=== PATIENT | female | born 1990 | race American Indian/Alaskan Native ===

== ENCOUNTER 2017-04-02 02:01 | Emergency (ER) | payer OTHER ==
[2017-04-02 02:55] LABS: Basophils % (Auto) 0.5 % (0.0-1.8); Eosinophils % (Auto) 2.4 % (0.0-4.3); Hemoglobin 12.9 gm/dl (10.1-14.3); Mean Corpuscular HGB Conc 34 % (30-34); Mean Corpuscular Hemoglobin 35 pg (28-32); Mean Corpuscular Volume 104 fl (79-97); Platelet Count 271 K/mm3 (140-440); Red Blood Count 3.65 M/mm3 (3.65-5.03); Red Cell Distribution Width 13.7 % (13.2-15.2); White Blood Count 6.1 K/mm3 (4.5-11.0)
[2017-04-02 03:06] LABS: Alanine Aminotransferase 10 units/L (7-56); Albumin 4.3 g/dL (3.9-5); Albumin/Globulin Ratio 1.7 %; Alkaline Phosphatase 65 units/L (35-129); Anion Gap 15 mmol/L; BUN/Creatinine Ratio 10; Blood Urea Nitrogen 6 mg/dL (7-17); Carbon Dioxide 25 mmol/L (22-30); Glucose 113 mg/dL (65-100); Lipase 21 units/L (13-60); Potassium 4.1 mmol/L (3.6-5.0); Sodium 137 mmol/L (137-145); Total Protein 6.9 g/dL (6.3-8.2)
[2017-04-02 06:45] LABS: Bacteria,Urine 4+ /HPF (Negative); Bilirubin,Urine NEG (Negative); Blood,Urine SM (Negative); Ketones,Urine NEG (Negative); Leukocyte Esterase,Urine NEG (Negative); Mucus,Urine 1+ /HPF; Nitrite,Urine NEG (Negative); Protein,Urine <15 mg/dL mg/dL (Negative)
[2017-04-02] MEDS ORDERED: DILAUDID IV ONE (13:57)
[2017-04-02] MEDS ORDERED: cefTRIAXone 1 GM in NACL 0.9% 20 ML IV ONE (13:57)
[2017-04-02] MEDS ORDERED: NACL 0.9% 1000 ML 1,000 ML IV ONE (13:57)
[2017-04-02] MEDS ORDERED: ZOFRAN IV ONE (13:57)
--- NOTE | 2017-04-02 14:21 | Emergency Department Report ---
ED Abdominal Pain HPI - General Chief Complaint: Abdominal Pain Stated Complaint: BAD STOMACH PAIN, OVERIAN CYST Time Seen by Provider: 04/02/17 13:31 Source: patient Mode of arrival: Ambulatory Limitations: No Limitations - History of Present Illness Initial Comments: 26-year-old female with a past medical history of ovarian cyst, previous appendectomy, kidney stones with renal stent placement and removal 2 weeks ago presents to the hospital with right lower quadrant pain and vomiting since yesterday. Pain is increasing last 24 hours. Patient states she is homeless. She denies fever, hematuria, or dysuria, or vaginal discharge. Patient is concerned that she has had 40+ CT scans already. 2 weeks ago patient was seen at a hospital in [facility]. She was admitted to the hospital for kidney stones and received stent placement with removal. She was also informed at that time she had a right ovarian cyst and needed operation but patient left the hospital prior to treatment at the right ovarian cyst Patient states she is a virgin and does not engage in vaginal intercourse. Severity scale (0 -10): 8 - Related Data Previous Rx's Medication Instructions Recorded Last Taken Type HYDROcodone/APAP 5-325 [[place] 1 each PO Q6HR PRN #20 tablet 04/02/17 Unknown Rx 5/325] Nitrofurantoin Monohyd/M-Cryst 100 mg PO BID #10 capsule 04/02/17 Unknown Rx [Macrobid 100 mg Capsule] Ondansetron [Zofran Odt] 4 mg PO Q8HR PRN #20 tab.rapdis 04/02/17 Unknown Rx Allergies Allergy/AdvReac Type Severity Reaction Status Date / Time ketorolac [From Toradol] Allergy Itching Verified 04/02/17 02:15 ED Review of Systems ROS: Stated complaint: BAD STOMACH PAIN, OVERIAN CYST Other details as noted in HPI Comment: All other systems reviewed and negative Other: Constitutional: No fevers chills Eyes: No eye pain visual changes ENT: No ear pain or throat pain Neck: Denies pain Respiratory: Denies cough wheezing shortness of breath Cardiovascular: Denies chest pain, palpitations, syncope GI: As per HPI : Denies dysuria, urinary frequency, or urgency Musculoskeletal: Denies back pain, joint swelling Skin: Denies rash, lesions, erythema Neurologic: Denies headache, numbness, weakness Psychiatric: Denies suicidal ideation, hallucinations ED Past Medical Hx - Past Medical History Previous Medical History?: Yes Hx Kidney Stones: Yes Additional medical history: renal stent placed 2016 - Surgical History Past Surgical History?: Yes Hx Appendectomy: Yes Additional Surgical History: "my bowel burst when I was 5 yrs old and required surgery" - Social History Smoking Status: Never Smoker Substance Use Type: None - Medications Home Medications: Home Medications Medication Instructions Recorded Confirmed Last Taken Type HYDROcodone/APAP 5-325 [[place] 1 each PO Q6HR PRN #20 tablet 04/02/17 Unknown Rx 5/325] Nitrofurantoin Monohyd/M-Cryst 100 mg PO BID #10 capsule 04/02/17 Unknown Rx [Macrobid 100 mg Capsule] Ondansetron [Zofran Odt] 4 mg PO Q8HR PRN #20 tab.rapdis 04/02/17 Unknown Rx ED Physical Exam - General Limitations: No Limitations - Other Other exam information: General: No limitations, patient is alert in no acute distress Head exam: Atraumatic, normocephalic Eyes exam: Normal appearance, pupils equal reactive to light, extraocular movements intact ENT: Moist mucous membrane, normal oropharynx Neck exam: Normal inspection, full range of motion, no meningismus nontender Respiratory exam: Clear to auscultation bilateral, no wheezes, rales, crackles Cardiovascular: Normal rate and rhythm, normal heart sounds Abdomen: Soft, nondistended, right lower quadrant tenderness, with normal bowel sounds, no rebound, or guarding Extremity: Full range of motion normal inspection no deformity Back: Normal Inspection, full range of motion, no tenderness Neurologic: Alert, oriented x3, cranial nerves intact, no motor or sensory deficit Psychiatric: normal affect, normal mood Skin: Warm, dry, intact ED Course Vital Signs 04/02/17 04/02/17 04/02/17 02:07 06:12 11:02 Temperature 98.2 F 98.6 F Pulse Rate 99 H 93 H Respiratory 18 18 Rate Blood Pressure 121/64 104/65 O2 Sat by Pulse 98 97 100 Oximetry 04/02/17 04/02/17 04/02/17 11:15 11:30 12:00 Temperature Pulse Rate Respiratory Rate Blood Pressure 106/37 104/63 106/37 O2 Sat by Pulse 96 93 100 Oximetry 04/02/17 04/02/17 04/02/17 12:15 12:30 12:45 Temperature Pulse Rate Respiratory Rate Blood Pressure 106/58 100/61 102/59 O2 Sat by Pulse 100 100 100 Oximetry 04/02/17 04/02/17 04/02/17 13:00 13:15 13:30 Temperature Pulse Rate Respiratory Rate Blood Pressure 102/63 105/63 96/56 O2 Sat by Pulse 100 Oximetry 04/02/17 04/02/17 04/02/17 13:45 14:00 19:34 Temperature Pulse Rate Respiratory Rate Blood Pressure 103/54 108/80 108/80 O2 Sat by Pulse 100 96 Oximetry - Reevaluation(s) Reevaluation #1: 04/02/17 20:30 Patient received Dilaudid and 1 L normal saline with no further complaints of pain during ED stay - Consultations Consultation #1: 04/02/17 20:[address] 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 Reviewed CT and ultrasound report. Recommend outpatient follow-up in the office of further treatment. ED Medical Decision Making - Lab Data Result diagrams: 04/02/17 02:27 04/02/17 02:27 Lab Results 04/02/17 04/02/17 04/02/17 Range/Units 02:27 02:27 06:16 WBC 6.1 (4.5-11.0) K/mm3 RBC 3.65 (3.65-5.03) M/mm3 Hgb 12.9 (10.1-14.3) gm/dl Hct 38.0 (30.3-42.9) % MCV 104 H (79-97) fl MCH 35 H (28-32) pg MCHC 34 (30-34) % RDW 13.7 (13.2-15.2) % Plt Count 271 (140-440) K/mm3 Lymph % (Auto) 39.8 H (13.4-35.0) % [place] % (Auto) 7.5 H (0.0-7.3) % Eos % (Auto) 2.4 (0.0-4.3) % Baso % (Auto) 0.5 (0.0-1.8) % Lymph # 2.4 (1.2-5.4) K/mm3 [place] # 0.5 (0.0-0.8) K/mm3 Eos # 0.1 (0.0-0.4) K/mm3 Baso # 0.0 (0.0-0.1) K/mm3 Seg Neutrophils % 49.8 (40.0-70.0) % Seg Neutrophils # 3.0 (1.8-7.7) K/mm3 Sodium 137 (137-145) mmol/L Potassium 4.1 (3.6-5.0) mmol/L Chloride 101.0 (98-107) mmol/L Carbon Dioxide 25 (22-30) mmol/L Anion Gap 15 mmol/L BUN 6 L (7-17) mg/dL Creatinine 0.6 L (0.7-1.2) mg/dL Estimated GFR > 60 ml/min BUN/Creatinine Ratio 10 % Glucose 113 H (65-100) mg/dL Calcium 9.0 (8.4-10.2) mg/dL Total Bilirubin 0.30 (0.1-1.2) mg/dL AST 15 (5-40) units/L ALT 10 (7-56) units/L Alkaline Phosphatase 65 (35-129) units/L Total Protein 6.9 (6.3-8.2) g/dL Albumin 4.3 (3.9-5) g/dL Albumin/Globulin Ratio 1.7 % Lipase 21 (13-60) units/L Urine Color Yellow (Yellow) Urine Turbidity Clear (Clear) Urine pH 6.0 (5.0-7.0) Ur Specific [place] 1.019 (1.003-1.030) Urine Protein <15 mg/dl (Negative) mg/dL Urine Glucose (UA) Neg (Negative) mg/dL Urine Ketones Neg (Negative) mg/dL Urine Blood Sm (Negative) Urine Nitrite Neg (Negative) Urine Bilirubin Neg (Negative) Urine Urobilinogen 2.0 (<2.0) mg/dL Ur Leukocyte Esterase Neg (Negative) Urine WBC (Auto) 10.0 H (0.0-6.0) /HPF Urine RBC (Auto) 19.0 (0.0-6.0) /HPF U Epithel Cells (Auto) 12.0 (0-13.0) /HPF Urine Bacteria (Auto) 4+ (Negative) /HPF Hyaline Casts 1 /LPF Urine Mucus 1+ /HPF Urine HCG, Qual (Negative) 04/02/17 Range/Units 06:16 WBC (4.5-11.0) K/mm3 RBC (3.65-5.03) M/mm3 Hgb (10.1-14.3) gm/dl Hct (30.3-42.9) % MCV (79-97) fl MCH (28-32) pg MCHC (30-34) % RDW (13.2-15.2) % Plt Count (140-440) K/mm3 Lymph % (Auto) (13.4-35.0) % [place] % (Auto) (0.0-7.3) % Eos % (Auto) (0.0-4.3) % Baso % (Auto) (0.0-1.8) % Lymph # (1.2-5.4) K/mm3 [place] # (0.0-0.8) K/mm3 Eos # (0.0-0.4) K/mm3 Baso # (0.0-0.1) K/mm3 Seg Neutrophils % (40.0-70.0) % Seg Neutrophils # (1.8-7.7) K/mm3 Sodium (137-145) mmol/L Potassium (3.6-5.0) mmol/L Chloride (98-107) mmol/L Carbon Dioxide (22-30) mmol/L Anion Gap mmol/L BUN (7-17) mg/dL Creatinine (0.7-1.2) mg/dL Estimated GFR ml/min BUN/Creatinine Ratio % Glucose (65-100) mg/dL Calcium (8.4-10.2) mg/dL Total Bilirubin (0.1-1.2) mg/dL AST (5-40) units/L ALT (7-56) units/L Alkaline Phosphatase (35-129) units/L Total Protein (6.3-8.2) g/dL Albumin (3.9-5) g/dL Albumin/Globulin Ratio % Lipase (13-60) units/L Urine Color (Yellow) Urine Turbidity (Clear) Urine pH (5.0-7.0) Ur Specific [place] (1.003-1.030) Urine Protein (Negative) mg/dL Urine Glucose (UA) (Negative) mg/dL Urine Ketones (Negative) mg/dL Urine Blood (Negative) Urine Nitrite (Negative) Urine Bilirubin (Negative) Urine Urobilinogen (<2.0) mg/dL Ur Leukocyte Esterase (Negative) Urine WBC (Auto) (0.0-6.0) /HPF Urine RBC (Auto) (0.0-6.0) /HPF U Epithel Cells (Auto) (0-13.0) /HPF Urine Bacteria (Auto) (Negative) /HPF Hyaline Casts /LPF Urine Mucus /HPF Urine HCG, Qual Negative (Negative) - Radiology Data Radiology results: report reviewed CT abdomen and pelvis IV contrast: 13 x 7.9 x 9.1 cm inferior central and right- sided septated pelvic cyst possibly of the right ovary. Pelvic ultrasound with Doppler may be of benefit for further evaluation. Tiny umbilical hernia containing fat. The centimeter bilateral renal I without hydronephrosis. Suspect prior partial small bowel obstruction Pelvic ultrasound: Likely large hemorrhagic cyst is seen in the right ovary measures 6.5 cm greatest dimension. Moderate free fluid is seen in the pelvis also. There is a 1.5 cm structure in the endometrial cavity could be possibly a submucosal fibroid or endometrial polyp. Further evaluation with contrast- enhanced MRI or hysteroscopy recommended - Medical Decision Making Patient will be instructed to follow-up with SCREEN MAKING TECHNICIAN and will be treated for UTI. She received a dose of Rocephin in the ED - Differential Diagnosis renal colic, UTI, ovarian cyst Critical Care Time: No Critical care attestation.: If time is entered above; I have spent that time in minutes in the direct care of this critically ill patient, excluding procedure time. ED Disposition Clinical Impression: Hemorrhagic cyst of right ovary, UTI (urinary tract infection) Disposition: TO HOME OR SELFCARE Is pt being admited?: No Does the pt Need Aspirin: No Condition: Stable Instructions: Ovarian Cyst (ED), Urinary Tract Infection in Women (ED) Additional Instructions: Take the medication for pain. Is very important that you follow up with a SCREEN MAKING TECHNICIAN doctor for further treatment of your ovarian cyst. Return if symptoms worsen. Prescriptions: HYDROcodone/APAP 5-325 [[place] 5/325] 1 each PO Q6HR PRN #20 tablet PRN Reason: Pain Nitrofurantoin Monohyd/M-Cryst [Macrobid 100 mg Capsule] 100 mg PO BID #10 capsule Ondansetron [Zofran Odt] 4 mg PO Q8HR PRN #20 tab.rapdis PRN Reason: Nausea And Vomiting Referrals: ANOOP AYON MD [Staff Physician] - 3-5 Days (underwater photographer ) [facility] [Provider Group] - 3-5 Days (Request SCREEN MAKING TECHNICIAN clinic ) Time of Disposition: 20:35
--- NOTE | 2017-04-02 14:55 | Cat Scan Report ---
FINAL REPORT PROCEDURE: CT ABDOMEN PELVIS WO CON TECHNIQUE: Computerized axial tomography of the abdomen and pelvis was performed without intravenous contrast. This study is performed without intravascular contrast material and its sensitivity for abdominal and pelvic pathology, including neoplasms, inflammation, abscess, free fluid, thrombosis, arterial dissection and infarction, is reduced compared with a contrast enhanced study. Oral contrast was not administered limiting evaluation of the bowel as well. HISTORY: rlq pain, n,v, hx of stones, ovarian cyst, appende COMPARISON: None FINDINGS: Visualized lower thorax: No significant abnormality. Liver: Normal size and attenuation. Spleen: Normal size and attenuation. Gallbladder and biliary system: Normal. Pancreas: Normal. Adrenals: Normal. Kidneys: Multiple sub centimeter calculi of the left more numerous than right kidney largest on the left 5 millimeters. No hydronephrosis or hydroureter bilaterally. GI tract: No bowel obstruction seen. Suspect partial small bowel resection. Lymph nodes and mesentery: No lymphadenopathy or mesenteric mass. Vasculature: Normal. Bladder: Normal. Reproductive organs: Septated cyst within the pelvis possibly of the right ovary 13 x 7.9 x 9.1 centimeters. Uterus thought to be present. Left ovary not definitely seen.. Peritoneum: No ascites. Musculoskeletal structures: Tiny umbilical hernia containing fat.. Other: None. IMPRESSION: 13 x 7.9 x 9.1 centimeter inferior central and right-sided septated pelvic cyst possibly of the right ovary. Pelvic ultrasound with Doppler may be of benefit for further evaluation. Tiny umbilical hernia containing fat. Sub centimeter bilateral renal calculi without hydronephrosis. Suspect prior partial small bowel resection.
--- NOTE | 2017-04-02 20:04 | Ultrasound Report ---
FINAL REPORT PROCEDURE: US PELVIS DUPLEX DOPPLER COMP TECHNIQUE: Real-time transabdominal sonography in multiple planes of the pelvis was performed with image documentation. Grayscale, color flow Doppler imaging and velocity spectral waveform analysis of the ovaries was employed (duplex imaging). [place] [address] [place] [address] HISTORY: right ovarian cyst on ct, rlq pain COMPARISON: CT exam from the same day FINDINGS: Uterus measures 8.9 cm in length. Endometrium is thickened to 2.5 cm. It has a heterogeneous appearance that could be associated with a submucosal fibroid or endometrial polyp measuring up to 1.5 cm. Moderate free fluid is seen in the pelvis, being greatest in the right lower quadrant. Right ovary is enlarged measuring 7.7 x 5.8 x 6.1 cm. It is a 6.5 x 4.6 x 5.4 cm complex cyst that is probably a hemorrhagic cyst. Normal Doppler flow is seen in the right ovary. Left ovary is not visualized. IMPRESSION: Likely large hemorrhagic cyst is seen in the right ovary measuring up to 6.5 cm in greatest dimension. Moderate free fluid is seen in the pelvis, also. Within the region of the endometrial cavity there is 1.5 cm structure that could possibly be a submucosal fibroid or possible endometrial polyp. Further evaluation with contrast-enhanced MRI or hysteroscopy is recommended.
[2017-04-02 21:44] VITALS: BP 104/38
== END 2017-04-02 21:50 | disposition home or self-care (01) ==
LOC: ED 02:01
DX: N83.201 Unspecified ovarian cyst, right side (principal); N39.0 Urinary tract infection, site not specified; Z88.4 Allergy status to anesthetic agent
CPT/HCPCS: 36415; 74176; 80053; 81001; 81025; 83690; 85025; 93975; 96361; 96365; 96375; 99284; J0696; J1170; J2405; J7030

== ENCOUNTER 2017-05-02 06:51 | Emergency (ER) | payer SELFPAY ==
[2017-05-02 09:09] VITALS: BP 117/60
--- NOTE | 2017-05-02 12:23 | Emergency Department Report ---
ED Abdominal Pain HPI - General Chief Complaint: Abdominal Pain Stated Complaint: KIDNEY STONE Time Seen by Provider: 05/02/17 12:22 Source: patient Mode of arrival: Ambulatory Limitations: No Limitations - Related Data Previous Rx's Medication Instructions Recorded Last Taken Type HYDROcodone/APAP 5-325 [[place] 1 each PO Q6HR PRN #20 tablet 04/02/17 Unknown Rx 5/325] Nitrofurantoin Monohyd/M-Cryst 100 mg PO BID #10 capsule 04/02/17 Unknown Rx [Macrobid 100 mg Capsule] Ondansetron [Zofran Odt] 4 mg PO Q8HR PRN #20 tab.rapdis 04/02/17 Unknown Rx Allergies Allergy/AdvReac Type Severity Reaction Status Date / Time ketorolac [From Toradol] Allergy Itching Verified 04/02/17 02:15 ED Review of Systems ROS: Stated complaint: KIDNEY STONE Other details as noted in HPI ED Past Medical Hx - Past Medical History Hx Kidney Stones: Yes Additional medical history: renal stent placed 2016 - Surgical History Hx Appendectomy: Yes Additional Surgical History: "my bowel burst when I was 5 yrs old and required surgery" - Social History Smoking Status: Current Every Day Smoker Substance Use Type: None - Medications Home Medications: Home Medications Medication Instructions Recorded Confirmed Last Taken Type HYDROcodone/APAP 5-325 [[place] 1 each PO Q6HR PRN #20 tablet 04/02/17 Unknown Rx 5/325] Nitrofurantoin Monohyd/M-Cryst 100 mg PO BID #10 capsule 04/02/17 Unknown Rx [Macrobid 100 mg Capsule] Ondansetron [Zofran Odt] 4 mg PO Q8HR PRN #20 tab.rapdis 04/02/17 Unknown Rx ED Physical Exam - General Limitations: No Limitations ED Course Vital Signs 05/02/17 09:05 Temperature 98.3 F Pulse Rate 69 Respiratory 17 Rate Blood Pressure 117/60 O2 Sat by Pulse 100 Oximetry Critical care attestation.: If time is entered above; I have spent that time in minutes in the direct care of this critically ill patient, excluding procedure time. ED Disposition Condition: Stable Instructions: Abdominal Pain (ED) Referrals: PRIMARY CARE, [Primary Care Provider] - 3-5 Days
== END 2017-05-02 12:24 | disposition left against medical advice (07) ==
LOC: ED 06:51
DX: Z53.21 Procedure and treatment not carried out due to patient leaving prior to being seen by health care provider (principal)

== ENCOUNTER 2017-05-03 11:33 | Inpatient (IN) | payer OTHER ==
[2017-05-03 12:06] LABS: Basophils % (Auto) 0.6 % (0.0-1.8); Eosinophils % (Auto) 0.7 % (0.0-4.3); Hematocrit 41.4 % (30.3-42.9); Hemoglobin 13.9 gm/dl (10.1-14.3); Mean Corpuscular HGB Conc 34 % (30-34); Mean Corpuscular Hemoglobin 35 pg (28-32); Mean Corpuscular Volume 105 fl (79-97); Platelet Count 255 K/mm3 (140-440); Red Blood Count 3.96 M/mm3 (3.65-5.03); White Blood Count 5.4 K/mm3 (4.5-11.0)
[2017-05-03 12:23] LABS: Alanine Aminotransferase 10 units/L (7-56); Albumin 4.8 g/dL (3.9-5); Albumin/Globulin Ratio 1.7 %; Alkaline Phosphatase 67 units/L (35-129); Anion Gap 22 mmol/L; BUN/Creatinine Ratio 9; Blood Urea Nitrogen 6 mg/dL (7-17); Calcium 9.7 mg/dL (8.4-10.2); Carbon Dioxide 21 mmol/L (22-30); Chloride 100.1 mmol/L (98-107); Glucose 99 mg/dL (65-100); Lipase 11 units/L (13-60); Potassium 4.2 mmol/L (3.6-5.0); Sodium 139 mmol/L (137-145); Total Protein 7.6 g/dL (6.3-8.2)
[2017-05-03 12:49] LABS: Bilirubin,Urine NEG (Negative); Blood,Urine LG (Negative); Ketones,Urine TR mg/dL (Negative); Leukocyte Esterase,Urine TR (Negative); Mucus,Urine 1+ /HPF; Nitrite,Urine NEG (Negative); Urobilinogen,Urine < 2.0 mg/dL (<2.0)
[2017-05-03 12:51] LABS: RBC,Urine > 182.0 /HPF (0.0-6.0)
[2017-05-03] MEDS ORDERED: MORPHINE IV ONE (21:44)
[2017-05-03] MEDS ORDERED: ZOFRAN IV ONE (21:44)
[2017-05-03] MEDS ORDERED: ZOFRAN IM ONE (21:49)
--- NOTE | 2017-05-03 21:55 | Emergency Department Report ---
ED Abdominal Pain HPI - General Chief Complaint: Abdominal Pain Stated Complaint: PAIN Time Seen by Provider: 05/03/17 21:19 Source: patient Mode of arrival: Ambulatory Limitations: No Limitations - History of Present Illness Initial Comments: 27 YO FEMALE WITH ABDOMINAL PAIN, NAUSEA, VOMITING, THAT BEGAN 11 AM TODAY. 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 SHE HAD A RUPTURED APPENDIX WHEN SHE WAS 5 YEARS AND HAD EMERGENCY SURGERY. PT REFUSED TO HAVE TRANSVAGINAL ULTRASOUND, AND REFUSES TO HAVE PELVIC EXAM FOR WET PREP AND GC.CHLAMYDIA MD Complaint: abdominal pain -: hour(s) (10HRS AGO) Location: RLQ Migration to: no migration Severity scale (0 -10): 10 Quality: cramping, other (SQUEEZING) Consistency: constant Improves With: medication Worsens With: movement Context: other (MENSTRUAL CYCLE) Associated Symptoms: nausea, vomiting. denies: diarrhea - Related Data Previous Rx's Medication Instructions Recorded Last Taken Type Nitrofurantoin Monohyd/M-Cryst 100 mg PO BID #10 capsule 04/02/17 Unknown Rx [Macrobid 100 mg Capsule] HYDROcodone/APAP 5-325 [[place] 1 each PO Q6HR PRN #20 tablet 05/03/17 Unknown Rx 5-325 mg TAB] Ondansetron [Zofran ODT TAB] 8 mg PO Q8HR PRN #12 tab.rapdis 05/03/17 Unknown Rx Allergies Allergy/AdvReac Type Severity Reaction Status Date / Time ketorolac [From Toradol] Allergy Itching Verified 04/02/17 02:15 ED Review of Systems ROS: Stated complaint: PAIN Other details as noted in HPI Constitutional: denies: chills, fever Eyes: denies: eye pain, eye discharge, vision change ENT: denies: ear pain, throat pain Respiratory: denies: cough, shortness of breath, wheezing Cardiovascular: denies: chest pain, palpitations Endocrine: no symptoms reported Gastrointestinal: nausea, vomiting. denies: diarrhea Genitourinary: denies: urgency, dysuria, discharge Musculoskeletal: denies: back pain, joint swelling, arthralgia Skin: denies: rash, lesions Neurological: denies: headache, weakness, paresthesias Psychiatric: denies: anxiety, depression Hematological/Lymphatic: denies: easy bleeding, easy bruising ED Past Medical Hx - Past Medical History Previous Medical History?: Yes Hx Kidney Stones: Yes Additional medical history: renal stent placed 2017, RIGHT OVARIAN CYSTS - Surgical History Past Surgical History?: Yes Hx Appendectomy: Yes Additional Surgical History: "my bowel burst when I was 5 yrs old and required surgery" - Social History Smoking Status: Never Smoker Substance Use Type: None - Medications Home Medications: Home Medications Medication Instructions Recorded Confirmed Last Taken Type Nitrofurantoin Monohyd/M-Cryst 100 mg PO BID #10 capsule 04/02/17 Unknown Rx [Macrobid 100 mg Capsule] HYDROcodone/APAP 5-325 [[place] 1 each PO Q6HR PRN #20 tablet 05/03/17 Unknown Rx 5-325 mg TAB] Ondansetron [Zofran ODT TAB] 8 mg PO Q8HR PRN #12 tab.rapdis 05/03/17 Unknown Rx ED Physical Exam - General Limitations: No Limitations General appearance: alert, in no apparent distress - Head Head exam: Present: atraumatic, normocephalic - Eye Eye exam: Present: normal appearance, EOMI - ENT ENT exam: Present: mucous membranes moist - Neck Neck exam: Present: normal inspection, full ROM - Respiratory Respiratory exam: Present: normal lung sounds bilaterally. Absent: respiratory distress - Cardiovascular Cardiovascular Exam: Present: regular rate, normal rhythm. Absent: systolic murmur, diastolic murmur, rubs, gallop - GI/Abdominal GI/Abdominal exam: Present: soft, tenderness (RIGHT LOWER QUADRANT), normal bowel sounds. Absent: guarding, rebound - Rectal Rectal exam: Present: deferred - Extremities Exam Extremities exam: Present: normal inspection, full ROM - Back Exam Back exam: Present: normal inspection, full ROM - Neurological Exam Neurological exam: Present: alert, oriented X3, CN II-XII intact - Psychiatric Psychiatric exam: Present: normal affect, normal mood - Skin Skin exam: Present: warm, dry, intact, normal color. Absent: rash ED Course Vital Signs 05/03/17 05/03/17 05/03/17 11:41 21:30 21:35 Temperature 98 F Pulse Rate 94 H 95 H 95 H Respiratory 22 16 15 Rate Blood Pressure 123/63 119/66 Blood Pressure [Right] O2 Sat by Pulse 100 99 Oximetry 05/03/17 05/03/17 05/03/17 21:41 21:43 21:45 Temperature 98.4 F Pulse Rate 83 81 77 Respiratory 17 14 19 Rate Blood Pressure 119/66 124/58 Blood Pressure 119/66 [Right] O2 Sat by Pulse 73 L 99 Oximetry 05/03/17 05/03/17 05/03/17 21:47 21:51 22:01 Temperature Pulse Rate 77 76 Respiratory 21 24 15 Rate Blood Pressure 124/58 124/58 112/50 Blood Pressure [Right] O2 Sat by Pulse 100 85 Oximetry 05/03/17 05/03/17 05/03/17 22:11 22:21 22:30 Temperature Pulse Rate Respiratory 16 20 17 Rate Blood Pressure 112/50 114/63 131/56 Blood Pressure [Right] O2 Sat by Pulse Oximetry - Reevaluation(s) Reevaluation #1: 05/04/17 01:39 DR ANSON BORDEN WOOD SETTER PAGED AND [facility] HOSPITALIST TO ADMIT THE PT AND SHE WILL CONSULT. 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 ED Disposition Clinical Impression: Dysmenorrhea, Lesion of ovary Nausea & vomiting Qualifiers: Vomiting type: unspecified Vomiting Intractability: non-intractable Qualified Code(s): R11.2 - Nausea with vomiting, unspecified Disposition: - TO HOME OR SELFCARE Is pt being admited?: No Does the pt Need Aspirin: No Condition: Stable Instructions: Dysmenorrhea (ED), Acute Nausea and Vomiting (ED), Abdominal Pain (ED) Additional Instructions: PLESE SEE;YOUR DOCTOR IN TWO DAYS. RETURN TO THE ER FOR ANY WORSENING SYMPTOMS OR INCREASED PAIN. Prescriptions: HYDROcodone/APAP 5-325 [[place] 5-325 mg TAB] 1 each PO Q6HR PRN #20 tablet PRN Reason: Pain Ondansetron [Zofran ODT TAB] 8 mg PO Q8HR PRN #12 tab.rapdis PRN Reason: Nausea And Vomiting Referrals: PRIMARY CARE, [Primary Care Provider] - 3-5 Days Time of Disposition: 01:51 (CASE REVIEWED WITH DR ANSON BORDEN AND SHE WILL ADMIT THE PT TO [facility])
--- NOTE | 2017-05-04 | XRay Report ---
FINAL REPORT PROCEDURE: XR ABD SERIES W CXR 1V TECHNIQUE: Abdominal series complete, including supine and upright AP views of the abdomen and frontal chest. HISTORY: ABD PAIN,N,V COMPARISON: No prior studies are available for comparison. FINDINGS: Heart: Normal. Mediastinum/Vessels: Normal. Lungs/Pleural space: Normal. Bowel gas pattern: There is no bowel obstruction, fecal impaction or bowel wall thickening.. Masses or calcifications: None. Bony structures: No acute osseous abnormality. Other: No free intraperitoneal air. IMPRESSION: No acute abnormality.
--- NOTE | 2017-05-04 00:47 | Ultrasound Report ---
FINAL REPORT PROCEDURE: US PELVIC COMPLETE TECHNIQUE: Real-time transabdominal sonography in multiple planes of pelvis was performed with image documentation. This examination was performed without Doppler. Vascular abnormalities, including ovarian torsion, will not be detectable without Doppler evaluation. CPT 24632 HISTORY: Abdominal pain. Right lower quadrant pain. COMPARISON: Ultrasound dated 04/02/2017. FINDINGS: UTERUS Size: 10.4 x 4.2 x 4.1 cm. Endometrial thickness: 10.9 mm. Orientation: anteverted. Cervix: Normal. Fibroids/masses: None. RIGHT Ovary: 11.4 x 11.3 x 10.3 cm, previously 7.7 x 5.8 x 6.1 cm cm. Appearance: Normal flow. Large hypoechoic 9.7 cm lesion with internal echoes about the right ovary/adnexa. This previously measured 6.5 x 4.6 x 5.4 cm. Normal flow. LEFT Ovary: 2.2 x 1.5 x 1.6 cm. Appearance: Small follicles. Normal flow. Pelvic fluid: Minimal free pelvic fluid. Other: None. IMPRESSION: Enlarging complex right ovarian hypoechoic lesion with internal echoes. Consider hemorrhagic cyst. Also consider other etiology including cystadenoma or even endometrioma, less likely mass lesion. Trace amount of free pelvic fluid. Consider MRI for further characterization if there is continued clinical concern and patient has no contraindication to MRI. Endometrial lesion previously described not readily apparent on the current exam, this can also be further evaluated on MRI if there is continued clinical concern.
[2017-05-04] MEDS ORDERED: REGLAN IV PRN (02:05)
[2017-05-04] MEDS ORDERED: NARCAN 0.4 MG/1 ML IV PRN (02:05)
[2017-05-04] MEDS: ZOFRAN IV PRN ×2 (02:53→17:11)
[2017-05-04] MEDS: MORPHINE IV PRN ×2 (02:53→17:07)
[2017-05-04] MEDS ORDERED: ZOFRAN ONE (02:54)
[2017-05-04] MEDS ORDERED: MORPHINE ONE (02:54)
[2017-05-04] MEDS: PERCOCET 5/325 PO PRN ×3 (05:12→15:38)
[2017-05-04] MEDS: LACTATED RINGERS 1,000 ML IV SCH (05:12)
--- NOTE | 2017-05-04 11:46 | Magnetic Resonance Report ---
FINAL REPORT EXAM: MR PELVIS WO/W CON HISTORY: suspeccted ovarian cyst TECHNIQUE: Fat sensitive and fluid sensitive MR sequences of the pelvis were performed in axial, sagittal and coronal planes. Pre and post-contrast images obtained. 12 cc MultiHance IV contrast administered. PRIORS: None. FINDINGS: There is a large cystic mass in the right adnexa which measures 7.6 x 8.0 x 11.3 cm. This cystic mass directly communicates with a fluid containing tubular structure. Therefore, this is likely a very dilated fallopian tube. The fluid is complex fluid, possibly hemorrhagic. Findings are suspicious for a hemosalpinx. The right ovary is not otherwise visualized. The left ovary is unremarkable. There is a low signal mass in the uterus measuring about 2.2 x 1.5 cm. This is likely a submucosal fibroid. The the IMPRESSION: There is a 7.6 x 8.0 x 11.3 cm right adnexal complex pelvic cystic mass. Signal characteristics suggest that this is possibly a hemorrhagic cystic mass. It communicates directly with a fluid containing tubular structure, presumably the fallopian tube. This therefore likely represents a very large hemo/hydrosalpinx. Pyosalpinx not entirely excluded. 2.2 cm uterine submucosal mass is probably a submucosal fibroid.
--- NOTE | 2017-05-04 15:28 | History and Physical Report ---
History of Present Illness Date of examination: 05/04/17 Date of admission: 05/04/17 01:58 Chief complaint: abdominal pain History of present illness: Pt is a 27 year old nulligravida LMP 05/01/17 who presents with abdominal pain and nausea secondary to known right adnexal mass. Pt was seen in the ED on 04/02 and told to follow up with a coating mixer but she has not done so yet. 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 She presented to the ED on 05/03/17 secondary to abdominal pain. She had a CT scan of the abdomen and pelvis which showed an 11 cm right-sided adnexal mass. She is admitted for pain control. Upon further questioning the patient reports that the masses in present for greater than 5 years and that she has been avoiding surgery. She notes that her pain worsens when she is on her menses, as she is presently. She reports recently moving to [place] and March 2017 from [facility]. She has not established gynecologic care here in [place]. Past History Past Medical History: no pertinent history Past Surgical History: other ("Repair when my bowel exploded at age 5") WOOD FUEL PELLETIZER History: other (right adnexal mass per HPI ) Social history: other (homeless ) - Obstetrical History : 0 Medications and Allergies Allergies Allergy/AdvReac Type Severity Reaction Status Date / Time ketorolac [From Toradol] Allergy Itching Verified 04/02/17 02:15 Home Medications Medication Instructions Recorded Confirmed Last Taken Type Nitrofurantoin Monohyd/M-Cryst 100 mg PO BID #10 capsule 04/02/17 Unknown Rx [Macrobid 100 mg Capsule] HYDROcodone/APAP 5-325 [[place] 1 each PO Q6HR PRN #20 tablet 05/03/17 Unknown Rx 5-325 mg TAB] Ondansetron [Zofran ODT TAB] 8 mg PO Q8HR PRN #12 tab.rapdis 05/03/17 Unknown Rx Active Meds: Active Medications Lactated Ringer's (Lactated Ringers) 1,000 mls @ 125 mls/hr IV DIRECT ROBBI Last Admin: 05/04/17 05:12 Dose: 125 mls/hr Metoclopramide HCl (Reglan) 10 mg IV Q6H PRN PRN Reason: Nausea And Vomiting Morphine Sulfate (Morphine) 2 mg IV Q4H PRN PRN Reason: Pain, Moderate (4-6) Last Admin: 05/04/17 02:53 Dose: 2 mg Naloxone HCl (Narcan 0.4 Mg/1 Ml) 0.1 mg IV Q2MIN PRN PRN Reason: Res Rate </= 8 or 02 SAT < 92% Ondansetron HCl (Zofran) 4 mg IV Q8H PRN PRN Reason: N/V unrelieved by Reglan Last Admin: 05/04/17 02:53 Dose: 4 mg Oxycodone/Acetaminophen (Percocet 5/325) 2 tab PO Q4H PRN PRN Reason: Pain, Moderate (4-6) Last Admin: 05/04/17 11:42 Dose: 2 tab Review of Systems All systems: negative - Vital Signs Vital signs: Vital Signs Temp Pulse Resp BP Pulse Ox 98 F 94 H 22 123/63 100 05/03/17 11:41 05/03/17 11:41 05/03/17 11:41 05/03/17 11:41 05/03/17 11:41 Temp Pulse Resp BP Pulse Ox 97.3 F L 95 H 18 108/55 97 05/04/17 12:00 05/04/17 12:00 05/04/17 12:42 05/04/17 12:00 05/04/17 12:00 - Physical Exam Breasts: Positive: deferred Cardiovascular: Regular rate Lungs: Positive: Clear to auscultation Abdomen: Positive: soft, tenderness (minimal) Extremities: Positive: normal Results Result Diagrams: 05/03/17 11:50 05/03/17 11:50 All other labs normal. Assessment and Plan A: Right adnexal mass- suspected hemosalpinx present for years Abdominal Pain Homeless P: Admit for observation for pain control protective services case worker consult
[2017-05-04] MEDS ORDERED: MOTRIN PO PRN (17:13)
[2017-05-04] MEDS: DILAUDID IV PRN (19:45)
[2017-05-04 20:12] LABS: Urine Drugs of Abuse Note Disclamer
[2017-05-05] MEDS: DILAUDID IV PRN ×2 (02:30→08:10)
[2017-05-05] MEDS: LACTATED RINGERS 1,000 ML IV SCH (02:30)
[2017-05-05] MEDS: ZOFRAN IV PRN ×2 (02:31→08:10)
--- NOTE | 2017-05-05 10:06 | Progress Note ---
Assessment and Plan A: Right adnexal mass Fibroid uterus Nausea Homeless P: Case management consult Discharge today with PO pain and nausea medication Schedule surgery outpatient Subjective - Subjective Date of service: 05/05/17 Principal diagnosis: Right hemosalpinx, nausea Interval history: Pt had episode of vomiting overnight but she tolerated clark this morning. Patient reports: appetite normal, voiding normally, pain well controlled, ambulating normally Objective - Vital Signs Latest vital signs: Vital Signs Temp Pulse Resp BP BP Pulse Ox 05/05/17 07:47 97.5 F L 79 18 102/53 100 05/05/17 04:00 97.8 F 70 111/70 05/05/17 00:00 97.7 F 74 120/64 05/04/17 20:00 97.5 F L 63 18 118/63 05/04/17 19:45 16 05/04/17 16:59 97.8 F 66 18 107/71 100 05/04/17 12:42 18 05/04/17 12:00 97.3 F L 95 H 18 108/55 97 Intake and Output 05/04/17 05/05/17 05/05/17 22:59 06:59 14:59 Intake Total 480 Balance 480 Intake: Oral 360 Intake, Free Water 120 Other: Total, Intake Amount 360 Voiding Method Toilet # Voids 1 Void 1 2 - Exam Breasts: Present: deferred Cardiovascular: Present: Regular rate Lungs: Present: Clear to auscultation Abdomen: Present: soft, distention, tenderness (RLQ). Absent: guarding Extremities: Present: normal
--- NOTE | 2017-05-05 10:12 | Discharge Summary ---
Providers - Providers Date of Admission: 05/04/17 01:58 Date of discharge: 05/05/17 Attending physician: ANSON BORDEN 05/04/17 23:27 Consult to Case Management [CONS] Routine Services Needed at Discharge: Commercial Designer Notified:: case management Phone number called:: [phone] Was contact made?: Yes If yes, spoke with:: sara Time called:: 09:05 Comment:: Pt is homeless and needs insurance referrral Primary care physician: PREFITTER Hospitalization Reason for admission: other (right adnexal mass, abdominal pain ) Hospital course: Pt was admitted for pain control and antiemetics which she tolerated well. She had a CT abdomen/pelvis and a pelvic MRI which revealed suspected right hemosalpinx. She met discharge criteria on HD#1. She will follow up in 1 wk for follow up to schedule excision procedure. Condition at discharge: Stable Disposition: - TO HOME OR SELFCARE - Discharge Diagnoses (1) Adnexal mass Status: Acute (2) Dysmenorrhea Status: Acute (3) Nausea & vomiting Status: Acute Qualifiers: Vomiting type: unspecified Vomiting Intractability: non-intractable Qualified Code(s): R11.2 - Nausea with vomiting, unspecified Plan - Discharge Medications Prescriptions: HYDROcodone/APAP 5-325 [[place] 5-325 mg TAB] 1 each PO Q6HR PRN #20 tablet PRN Reason: Pain Ondansetron [Zofran ODT TAB] 8 mg PO Q8HR PRN #12 tab.rapdis PRN Reason: Nausea And Vomiting Ondansetron [Zofran TAB] 4 mg PO Q8HR PRN #30 tablet PRN Reason: Nausea oxyCODONE /ACETAMINOPHEN [Percocet 5/325] 1 tab PO Q6HR PRN #30 tablet PRN Reason: Pain - Provider Discharge Summary Activity: routine, no sex for 6 weeks, no heavy lifting 4 weeks, no strenuous exercise Diet: routine Instructions: routine Additional instructions: [] Smoking cessation referral if applicable(refer to patient education folder for contact #) [] Refer to [facility]'s [facility] Booklet Call your doctor immediately for: * Fever > 100.5 * Heavy vaginal bleeding ( >1 pad per hour) * Severe persistent headache * Shortness of breath * Reddened, hot, painful area to leg or breast * Drainage or odor from incision. * Keep incision clean and dry at all times and follow doctor's instructions regarding bathing/showering - Follow up plan Follow up: PRIMARY CARE, [Primary Care Provider] - 3-5 Days ANSON BORDEN MD [Staff Physician] - 7 Days
[2017-05-05 11:44] VITALS: BP 113/60
== END 2017-05-05 12:25 | disposition home or self-care (01) | DRG 761 ==
LOC: ED 11:33 → OB 05-04 01:58
PROVIDERS: ADMIT Obstetrics & Gynecology; ATTEND Obstetrics & Gynecology
DX: N83.9 Noninflammatory disorder of ovary, fallopian tube and broad ligament, unspecified (principal); R11.2 Nausea with vomiting, unspecified; N94.6 Dysmenorrhea, unspecified; Z59.0 Homelessness; D25.9 Leiomyoma of uterus, unspecified; Z88.8 Allergy status to other drugs, medicaments and biological substances
CPT/HCPCS: 36415; 72197; 74022; 76856; 80053; 80307; 81001; 83690; 84703; 85025; 96372; 96374; A9577; J1170; J2270; J2405; J2765; J7120

== ENCOUNTER 2017-06-26 22:08 | Emergency (ER) | payer SELFPAY ==
[2017-06-26] MEDS ORDERED: ZOFRAN ODT PO ONE (23:46)
[2017-06-27 00:46] LABS: Basophils % (Auto) 0.6 % (0.0-1.8); Eosinophils # (Auto) 0.1 K/mm3 (0.0-0.4); Eosinophils % (Auto) 1.5 % (0.0-4.3); Hematocrit 40.7 % (30.3-42.9); Hemoglobin 13.3 gm/dl (10.1-14.3); Lymphocytes # (Auto) 1.8 K/mm3 (1.2-5.4); Mean Corpuscular HGB Conc 33 % (30-34); Mean Corpuscular Hemoglobin 34 pg (28-32); Mean Corpuscular Volume 105 fl (79-97); Monocytes # (Auto) 0.5 K/mm3 (0.0-0.8); Monocytes % (Auto) 8.3 % (0.0-7.3); Platelet Count 262 K/mm3 (140-440); Red Blood Count 3.87 M/mm3 (3.65-5.03); Red Cell Distribution Width 12.9 % (13.2-15.2)
[2017-06-27 00:50] LABS: Alanine Aminotransferase 9 units/L (7-56); Albumin 4.1 g/dL (3.9-5); BUN/Creatinine Ratio 10; Blood Urea Nitrogen 7 mg/dL (7-17); Calcium 8.8 mg/dL (8.4-10.2); Hemolysis Index 15
[2017-06-27 05:18] LABS: Bilirubin,Urine NEG (Negative); Blood,Urine LG (Negative); Color,Urine Yellow (Yellow); Mucus,Urine 1+ /HPF; Nitrite,Urine NEG (Negative); Protein,Urine <15 mg/dL mg/dL (Negative); Urobilinogen,Urine < 2.0 mg/dL (<2.0)
[2017-06-27 05:19] LABS: RBC,Urine > 182.0 /HPF (0.0-6.0)
[2017-06-27] MEDS ORDERED: NACL 0.9% 1000 ML 1,000 ML IV ONE (07:10)
[2017-06-27] MEDS ORDERED: ZOFRAN IV ONE (07:10)
[2017-06-27] MEDS ORDERED: MORPHINE IV ONE (07:10)
--- NOTE | 2017-06-27 07:14 | Emergency Department Report ---
ED Abdominal Pain HPI - General Chief Complaint: Abdominal Pain Stated Complaint: ABD PAIN Time Seen by Provider: 06/27/17 07:05 Source: patient Mode of arrival: Ambulatory Limitations: No Limitations - History of Present Illness Initial Comments: Patient is 27 years old female history of kidney stone and ovarian cyst presented with sudden onset of right flank pain that radiates down to her groin. Pain associated with nausea vomiting but no diarrhea. Patient denied any fever, cough or shortness of breath. MD Complaint: abdominal pain, flank pain -: Sudden, Last night Location: suprapubic Radiation: none Migration to: no migration Severity: severe Severity scale (0 -10): 8 Quality: stabbing Associated Symptoms: nausea, vomiting - Related Data Previous Rx's Medication Instructions Recorded Last Taken Type Nitrofurantoin Monohyd/M-Cryst 100 mg PO BID #10 capsule 04/02/17 Unknown Rx [Macrobid 100 mg Capsule] HYDROcodone/APAP 5-325 [[place] 1 each PO Q6HR PRN #20 tablet 05/03/17 Unknown Rx 5-325 mg TAB] Ondansetron [Zofran ODT TAB] 8 mg PO Q8HR PRN #12 tab.rapdis 05/03/17 Unknown Rx Ondansetron [Zofran TAB] 4 mg PO Q8HR PRN #30 tablet 05/05/17 Unknown Rx oxyCODONE /ACETAMINOPHEN [Percocet 1 tab PO Q6HR PRN #30 tablet 05/05/17 Unknown Rx 5/325] Allergies Allergy/AdvReac Type Severity Reaction Status Date / Time ketorolac [From Toradol] Allergy Itching Verified 04/02/17 02:15 ED Review of Systems ROS: Stated complaint: ABD PAIN Other details as noted in HPI Comment: All other systems reviewed and negative Constitutional: denies: chills, fever Respiratory: denies: cough, orthopnea, shortness of breath, SOB with exertion Cardiovascular: denies: chest pain, palpitations Gastrointestinal: abdominal pain, nausea, vomiting Genitourinary: hematuria Neurological: denies: headache, weakness, numbness ED Past Medical Hx - Past Medical History Previous Medical History?: Yes Hx Kidney Stones: Yes Hx HIV: No Additional medical history: renal stent placed 2017, RIGHT OVARIAN CYSTS - Surgical History Past Surgical History?: Yes Hx Appendectomy: Yes Additional Surgical History: "my bowel burst when I was 5 yrs old and required surgery" - Social History Smoking Status: Current Every Day Smoker Substance Use Type: Marijuana - Medications Home Medications: Home Medications Medication Instructions Recorded Confirmed Last Taken Type Nitrofurantoin Monohyd/M-Cryst 100 mg PO BID #10 capsule 04/02/17 Unknown Rx [Macrobid 100 mg Capsule] HYDROcodone/APAP 5-325 [[place] 1 each PO Q6HR PRN #20 tablet 05/03/17 Unknown Rx 5-325 mg TAB] Ondansetron [Zofran ODT TAB] 8 mg PO Q8HR PRN #12 tab.rapdis 05/03/17 Unknown Rx Ondansetron [Zofran TAB] 4 mg PO Q8HR PRN #30 tablet 05/05/17 Unknown Rx oxyCODONE /ACETAMINOPHEN [Percocet 1 tab PO Q6HR PRN #30 tablet 05/05/17 Unknown Rx 5/325] ED Physical Exam - General Limitations: No Limitations General appearance: alert, in no apparent distress - Head Head exam: Present: atraumatic, normocephalic - Eye Eye exam: Present: normal appearance - ENT ENT exam: Present: normal exam, mucous membranes dry - Neck Neck exam: Present: normal inspection, full ROM. Absent: tenderness, meningismus - Respiratory Respiratory exam: Present: normal lung sounds bilaterally - Cardiovascular Cardiovascular Exam: Present: regular rate, normal rhythm, normal heart sounds - GI/Abdominal GI/Abdominal exam: Present: soft, normal bowel sounds. Absent: distended, tenderness, guarding, rebound, rigid, organomegaly, mass, bruit, pulsatile mass , hernia - Extremities Exam Extremities exam: Present: normal inspection, full ROM - Back Exam Back exam: Present: normal inspection, CVA tenderness (R). Absent: CVA tenderness (L), muscle spasm, paraspinal tenderness - Neurological Exam Neurological exam: Present: alert, oriented X3, CN II-XII intact, normal gait - Skin Skin exam: Present: warm, dry, intact ED Course Vital Signs 06/26/17 06/27/17 06/27/17 23:41 03:10 03:15 Temperature 97.9 F Pulse Rate 76 Respiratory 16 Rate Blood Pressure 109/69 126/78 126/78 Blood Pressure [Left] O2 Sat by Pulse 100 98 100 Oximetry 06/27/17 06/27/17 06/27/17 03:18 03:30 03:45 Temperature Pulse Rate Respiratory 18 Rate Blood Pressure 120/72 120/72 Blood Pressure [Left] O2 Sat by Pulse 100 100 97 Oximetry 06/27/17 06/27/17 06/27/17 04:01 04:16 04:31 Temperature Pulse Rate Respiratory Rate Blood Pressure 126/78 126/78 126/78 Blood Pressure [Left] O2 Sat by Pulse 100 97 91 Oximetry 06/27/17 06/27/17 06/27/17 04:45 05:01 05:15 Temperature Pulse Rate Respiratory Rate Blood Pressure 126/78 126/78 120/72 Blood Pressure [Left] O2 Sat by Pulse 74 L 82 L 100 Oximetry 06/27/17 06/27/17 06/27/17 05:31 05:47 06:01 Temperature Pulse Rate Respiratory Rate Blood Pressure 120/72 120/72 120/72 Blood Pressure [Left] O2 Sat by Pulse 100 79 L 90 Oximetry 06/27/17 06/27/17 06/27/17 06:15 06:31 06:45 Temperature Pulse Rate Respiratory Rate Blood Pressure 120/72 120/72 120/72 Blood Pressure [Left] O2 Sat by Pulse 74 L 98 100 Oximetry 06/27/17 06/27/17 06/27/17 07:00 07:17 07:30 Temperature Pulse Rate Respiratory Rate Blood Pressure 120/72 120/72 116/75 Blood Pressure [Left] O2 Sat by Pulse 96 95 Oximetry 06/27/17 07:36 Temperature Pulse Rate 78 Respiratory 14 Rate Blood Pressure Blood Pressure 116/78 [Left] O2 Sat by Pulse 100 Oximetry ED Medical Decision Making - Lab Data Result diagrams: 06/27/17 00:00 06/27/17 00:00 - Radiology Data Radiology results: report reviewed Referring Physician: VIDA BOOTH Patient Name: WOODY WELSH Date of : 1990 Sex: Female Report Date: 2017-06-27 Report Status: Finalized Findings [facility] [address] [place] [address] Cat Scan Report Signed Patient: WOODY WELSH MR#: [id number] : 1990 Acct:[id number] Age/Sex: 27 / F ADM Date: 06/26/17 Loc: ED Attending Dr: Ordering Physician: VIDA BOOTH Date of Service: 06/27/17 Procedure(s): CT abdomen pelvis wo con Accession Number(s): [id number] cc: VIDA LathaRonan BOOTH CT ABDOMEN PELVIS WITHOUT CONTRAST: HISTORY: Right flank pain. COMPARISON: 04/02/17. TECHNIQUE: Helical CT in 1.25mm intervals without IV contrast. Sagittal and coronal reconstructions. FINDINGS: Lung bases: Normal. Liver: Normal. Biliary system: Normal. Pancreas: Normal. Spleen: Normal. Kidneys/ureters/bladder: There are multiple bilateral calyceal stones scattered throughout both kidneys. Approximately 6-8 stones are identified bilaterally measuring up to 4 mm. No focal renal lesion is appreciated on noncontrast CT. The ureters are normal course and caliber. No obvious ureteral stones or hydronephrosis. The bladder is unremarkable. Adrenal glands: Normal. Aorta: Normal. Intestines: Within normal limits given no oral contrast was administered. A surgical suture line is noted in the distal small bowel, correlate with history. Appendix: Not confidently identified. Pelvic viscera: There is a large cystic lesion in the right adnexa which measures up to 12 x 7 cm in axial plane. There appears to be a single thin internal septation but no evidence for calcifications, fat or large soft tissue component. This cyst displaces the bladder anteriorly and the uterus to the left side of the pelvis. The uterus and left adnexa are unremarkable. Ascites: None. Adenopathy: None. Musculoskeletal: Normal. IMPRESSION: Bilateral renal calyceal stones. No ureteral stones or hydronephrosis is identified. Large cystic lesion in the right adnexa measuring up to 12 x 7 cm which is presumably ovarian in origin. This is not significantly changed since 04/03/17. Transcribed By: TTR Dictated By: INEZ TARIQ JR, MD Electronically Authenticated By: INEZ TARIQ JR, MD Signed Date/Time: 06/27/17751 DD/ 0748 TD/TT: 06/27/17751 - Medical Decision Making Patient stated that her symptoms is much better. I discussed with the patient had a CT abdomen and pelvis finding, patient informed about her ovarian mass and the need to follow-up with a guyline operator as soon as possible. Patient already know but denies that she said she did not follow up. I will give him an option to follow-up with one of our gynecologists. Patient understood the instruction very well and she said she will follow it. Critical care attestation.: If time is entered above; I have spent that time in minutes in the direct care of this critically ill patient, excluding procedure time. ED Disposition Clinical Impression: Kidney stone, Ovarian mass, right Disposition: DC-01 TO HOME OR SELFCARE Is pt being admited?: No Condition: Stable Instructions: Abdominal Pain (ED), Kidney Stones (ED), Ovarian Cyst (ED) Referrals: ANOOP ROSARIO MD [Staff Physician] - 3-5 Days
[2017-06-27 07:39] VITALS: BP 116/78
--- NOTE | 2017-06-27 07:59 | Cat Scan Report ---
CT ABDOMEN PELVIS WITHOUT CONTRAST: HISTORY: Right flank pain. COMPARISON: 04/02/17. TECHNIQUE: Helical CT in 1.25mm intervals without IV contrast. Sagittal and coronal reconstructions. FINDINGS: Lung bases: Normal. Liver: Normal. Biliary system: Normal. Pancreas: Normal. Spleen: Normal. Kidneys/ureters/bladder: There are multiple bilateral calyceal stones scattered throughout both kidneys. Approximately 6-8 stones are identified bilaterally measuring up to 4 mm. No focal renal lesion is appreciated on noncontrast CT. The ureters are normal course and caliber. No obvious ureteral stones or hydronephrosis. The bladder is unremarkable. Adrenal glands: Normal. Aorta: Normal. Intestines: Within normal limits given no oral contrast was administered. A surgical suture line is noted in the distal small bowel, correlate with history. Appendix: Not confidently identified. Pelvic viscera: There is a large cystic lesion in the right adnexa which measures up to 12 x 7 cm in axial plane. There appears to be a single thin internal septation but no evidence for calcifications, fat or large soft tissue component. This cyst displaces the bladder anteriorly and the uterus to the left side of the pelvis. The uterus and left adnexa are unremarkable. Ascites: None. Adenopathy: None. Musculoskeletal: Normal. IMPRESSION: Bilateral renal calyceal stones. No ureteral stones or hydronephrosis is identified. Large cystic lesion in the right adnexa measuring up to 12 x 7 cm which is presumably ovarian in origin. This is not significantly changed since 04/03/17.
[2017-06-27] MEDS ORDERED: SUBLIMAZE IV ONE (08:57)
[2017-06-27] MEDS ORDERED: SUBLIMAZE IV NR (09:30)
== END 2017-06-27 10:31 | disposition home or self-care (01) ==
LOC: ED 22:08
DX: N83.291 Other ovarian cyst, right side (principal); N20.0 Calculus of kidney; F17.200 Nicotine dependence, unspecified, uncomplicated; F12.10 Cannabis abuse, uncomplicated; Z88.6 Allergy status to analgesic agent
CPT/HCPCS: 36415; 74176; 80053; 81001; 84703; 85025; 96361; 96374; 96375; 99284; J2270; J2405; J3010; J7030; Q0162

== ENCOUNTER 2017-08-20 01:03 | Emergency (ER) | payer SELFPAY ==
[2017-08-20 02:03] LABS: Basophils % (Auto) 0.4 % (0.0-1.8); Eosinophils # (Auto) 0.1 K/mm3 (0.0-0.4); Eosinophils % (Auto) 1.4 % (0.0-4.3); Hematocrit 41.1 % (30.3-42.9); Hemoglobin 13.6 gm/dl (10.1-14.3); Lymphocytes # (Auto) 2.1 K/mm3 (1.2-5.4); Lymphocytes % (Auto) 37.1 % (13.4-35.0); Mean Corpuscular HGB Conc 33 % (30-34); Mean Corpuscular Hemoglobin 34 pg (28-32); Mean Corpuscular Volume 103 fl (79-97); Monocytes # (Auto) 0.4 K/mm3 (0.0-0.8); Platelet Count 213 K/mm3 (140-440); Red Blood Count 3.98 M/mm3 (3.65-5.03); Red Cell Distribution Width 13.1 % (13.2-15.2)
[2017-08-20 02:31] LABS: Alanine Aminotransferase 11 units/L (7-56); Albumin 4.3 g/dL (3.9-5); BUN/Creatinine Ratio 13; Blood Urea Nitrogen 8 mg/dL (7-17); Calcium 8.7 mg/dL (8.4-10.2); Hemolysis Index 18
[2017-08-20 03:16] LABS: Bilirubin,Urine NEG (Negative); Blood,Urine LG (Negative); Color,Urine Red (Yellow); Urobilinogen,Urine < 2.0 mg/dL (<2.0)
[2017-08-20 03:25] LABS: RBC,Urine > 182.0 /HPF (0.0-6.0); WBC,Urine < 1.0 /HPF (0.0-6.0)
[2017-08-20] MEDS ORDERED: NORCO 5/325 PO ONE (09:17)
[2017-08-20] MEDS ORDERED: ZOFRAN ODT PO ONE (09:17)
--- NOTE | 2017-08-20 10:29 | Ultrasound Report ---
Pelvic ultrasound: Pelvic pain with history of hemorrhagic cyst. Transabdominal imaging only demonstrates an anteverted uterus measuring 3.9 x 4.5 x 8.1 cm. The myometrium may be inhomogeneous. No definite mass. The endometrial thickness is 10 mm. No obvious mass or fluid. There is a large circumscribed echolucent mass in the right adnexa with a maximum dimension 10 cm. There is also an echolucent mass which may be separate and slightly to the left measuring 3.9 cm. No definite solid ovarian tissue identified on either side. No free fluid noted. Impressions: Findings consistent with large right ovarian cyst and probable smaller left ovarian cyst.
[2017-08-20] MEDS ORDERED: SUBLIMAZE IV ONE ×2 (10:33→11:00)
[2017-08-20] MEDS ORDERED: NACL 0.9% 1000 ML 1,000 ML IV ONE (10:33)
[2017-08-20] MEDS ORDERED: ZOFRAN IV ONE (10:33)
--- NOTE | 2017-08-20 10:37 | Emergency Department Report ---
ED Abdominal Pain HPI - General Chief Complaint: Abdominal Pain Stated Complaint: ABDOMINAL PAIN Time Seen by Provider: 08/20/17 10:28 Source: patient Mode of arrival: Stretcher Limitations: No Limitations - History of Present Illness Initial Comments: Patient is 27 years old female with past medical history BOWEL obstruction and laminectomy surgery which ended in removing appendix. Also patient had a history of ovarian cyst. Patient presented with right lower quadrant and suprapubic abdominal pain that started all of a sudden around 12 this morning. Patient stated that she had 2 episodes of vomiting. She denied any diarrhea. She stated that she is on her cycle now. Patient denied any fever, cough, chest pain or back pain. MD Complaint: abdominal pain -: Sudden, This morning Location: RLQ, suprapubic Radiation: none Migration to: no migration Severity: severe Severity scale (0 -10): 10 Quality: cramping, stabbing Associated Symptoms: vomiting - Related Data Home Medications Medication Instructions Recorded Confirmed Last Taken No Known Home Medications [No 08/20/17 08/20/17 Unknown Reported Home Medications] Allergies Allergy/AdvReac Type Severity Reaction Status Date / Time ketorolac [From Toradol] Allergy Itching Verified 04/02/17 02:15 ED Review of Systems ROS: Stated complaint: ABDOMINAL PAIN Other details as noted in HPI Comment: All other systems reviewed and negative Constitutional: denies: chills, fever Respiratory: denies: cough, orthopnea, shortness of breath, SOB with exertion, SOB at rest Cardiovascular: denies: chest pain, palpitations, dyspnea on exertion Gastrointestinal: abdominal pain, vomiting. denies: nausea, diarrhea, constipation, hematemesis, melena, hematochezia Genitourinary: abnormal menses. denies: dysuria Neurological: denies: headache, weakness, numbness, paresthesias, confusion ED Past Medical Hx - Past Medical History Previous Medical History?: Yes Hx Kidney Stones: Yes Hx HIV: No Additional medical history: renal stent placed 2017, RIGHT OVARIAN CYSTS - Surgical History Past Surgical History?: Yes Hx Appendectomy: Yes Additional Surgical History: "my bowel burst when I was 5 yrs old and required surgery" - Social History Smoking Status: Current Some Day Smoker Substance Use Type: None, Marijuana - Medications Home Medications: Home Medications Medication Instructions Recorded Confirmed Last Taken Type No Known Home Medications [No 08/20/17 08/20/17 Unknown History Reported Home Medications] ED Physical Exam - General Limitations: No Limitations General appearance: alert, in distress (secondary to pain) - Head Head exam: Present: atraumatic, normocephalic - Eye Eye exam: Present: normal appearance - ENT ENT exam: Present: normal exam, normal orophraynx, mucous membranes moist - Neck Neck exam: Present: normal inspection, full ROM. Absent: tenderness, meningismus, lymphadenopathy - Respiratory Respiratory exam: Present: normal lung sounds bilaterally. Absent: respiratory distress, wheezes, rales, rhonchi, stridor, chest wall tenderness, accessory muscle use, decreased breath sounds, prolonged expiratory - Cardiovascular Cardiovascular Exam: Present: regular rate, normal rhythm, normal heart sounds - GI/Abdominal GI/Abdominal exam: Present: soft, tenderness, normal bowel sounds. Absent: distended, guarding, rebound, rigid, organomegaly, mass, bruit, pulsatile mass, hernia - Extremities Exam Extremities exam: Present: normal inspection, full ROM, normal capillary refill - Back Exam Back exam: Present: normal inspection, full ROM. Absent: tenderness, CVA tenderness (R), CVA tenderness (L), muscle spasm, paraspinal tenderness, vertebral tenderness - Neurological Exam Neurological exam: Present: alert, oriented X3, CN II-XII intact, normal gait - Skin Skin exam: Present: warm, intact, normal color ED Course Vital Signs 08/20/17 08/20/17 08/20/17 01:25 07:40 09:30 Temperature 98.7 F 98.8 F Pulse Rate 78 85 Respiratory 17 18 18 Rate Blood Pressure 96/68 104/49 O2 Sat by Pulse 99 99 Oximetry 08/20/17 08/20/17 11:00 11:01 Temperature Pulse Rate Respiratory 18 Rate Blood Pressure 108/64 O2 Sat by Pulse 100 Oximetry - Reevaluation(s) Reevaluation #1: 08/20/17 12:37 Patient stated that she is feeling much better. Pain is almost resolved. No vomiting no dizziness. I informed the patient about her ultrasound results which show a 10 cm right adnexal mass. 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 Contreras to follow-up with her in the next 2-3 days I also advised the patient to return to the ER if symptoms get worse. ED Medical Decision Making - Lab Data Result diagrams: 08/20/17 01:50 08/20/17 01:50 - Radiology Data Radiology results: report reviewed Referring Physician: GEM MONTELONGO Patient Name: WOODY WELSH Date of : 1990 Sex: Female Report Date: 2017-08-20 Report Status: Finalized Findings [facility] [address] [place] [address] Ultrasound Report Signed Patient: WOODY WELSH MR#: [id number] : 1990 Acct:[id number] Age/Sex: 27 / F ADM Date: 08/20/17 Loc: ED Attending Dr: Ordering Physician: GEM MONTELONGO MD Date of Service: 08/20/17 Procedure(s): US pelvic complete Accession Number(s): [id number] cc: GEM MONTELONGO MD Pelvic ultrasound: Pelvic pain with history of hemorrhagic cyst. Transabdominal imaging only demonstrates an anteverted uterus measuring 3.9 x 4.5 x 8.1 cm. The myometrium may be inhomogeneous. No definite mass. The endometrial thickness is 10 mm. No obvious mass or fluid. There is a large circumscribed echolucent mass in the right adnexa with a maximum dimension 10 cm. There is also an echolucent mass which may be separate and slightly to the left measuring 3.9 cm. No definite solid ovarian tissue identified on either side. No free fluid noted. Impressions: Findings consistent with large right ovarian cyst and probable smaller left ovarian cyst. Transcribed By: SPRING Dictated By: BLAKE GUDINO MD Electronically Authenticated By: BLAKE GUDINO MD Signed Date/Time: 08/20/17 100 DD/ 1006 TD/TT: 08/20/17 100 Critical care attestation.: If time is entered above; I have spent that time in minutes in the direct care of this critically ill patient, excluding procedure time. ED Disposition Clinical Impression: Abdominal pain, Ovarian cyst Disposition: - TO HOME OR SELFCARE Is pt being admited?: No Condition: Stable Instructions: Abdominal Pain (ED), Ovarian Cyst (ED) Referrals: TRACY CONTRERAS MD [Staff Physician] - 3-5 Days
[2017-08-20] MEDS ORDERED: SUBLIMAZE ONE (10:45)
[2017-08-20 13:02] VITALS: BP 106/73
== END 2017-08-20 13:03 | disposition home or self-care (01) ==
LOC: ED 01:03
DX: N83.201 Unspecified ovarian cyst, right side (principal); F17.200 Nicotine dependence, unspecified, uncomplicated; F12.10 Cannabis abuse, uncomplicated; Z88.6 Allergy status to analgesic agent; Z87.442 Personal history of urinary calculi
CPT/HCPCS: 36415; 76856; 80053; 81001; 84703; 85025; 96361; 96374; 96375; 99284; J2405; J3010; J7030; Q0162

== ENCOUNTER 2017-08-22 01:24 | Emergency (ER) | payer SELFPAY ==
[2017-08-22 02:07] LABS: Basophils % (Auto) 0.2 % (0.0-1.8); Eosinophils # (Auto) 0.1 K/mm3 (0.0-0.4); Eosinophils % (Auto) 1.3 % (0.0-4.3); Hematocrit 41.7 % (30.3-42.9); Hemoglobin 14.1 gm/dl (10.1-14.3); Lymphocytes # (Auto) 1.8 K/mm3 (1.2-5.4); Lymphocytes % (Auto) 31.5 % (13.4-35.0); Mean Corpuscular HGB Conc 34 % (30-34); Mean Corpuscular Hemoglobin 35 pg (28-32); Mean Corpuscular Volume 102 fl (79-97); Monocytes # (Auto) 0.4 K/mm3 (0.0-0.8); Monocytes % (Auto) 7.4 % (0.0-7.3); Platelet Count 242 K/mm3 (140-440); Red Blood Count 4.07 M/mm3 (3.65-5.03); Red Cell Distribution Width 12.8 % (13.2-15.2)
[2017-08-22 02:26] LABS: Alanine Aminotransferase 10 units/L (7-56); Albumin 4.6 g/dL (3.9-5); BUN/Creatinine Ratio 10; Blood Urea Nitrogen 6 mg/dL (7-17); Calcium 9.3 mg/dL (8.4-10.2); Hemolysis Index 1
[2017-08-22 04:06] LABS: Bilirubin,Urine NEG (Negative); Blood,Urine LG (Negative); Mucus,Urine FEW /HPF
[2017-08-22 04:07] LABS: Color,Urine RED (Yellow); RBC,Urine > 135.0 /HPF (0.0-6.0)
[2017-08-22] MEDS ORDERED: NORCO 5/325 PO ONE (04:38)
--- NOTE | 2017-08-22 05:02 | Emergency Department Report ---
ED Female HPI - General Chief complaint: Abdominal Pain Stated complaint: ABD PAIN VOMITING Time Seen by Provider: 08/22/17 04:30 Source: patient Mode of arrival: Ambulatory Limitations: No Limitations - History of Present Illness Initial comments: Patient is a 27-year-old female who is presenting with lower abdominal pain. Patient states that she's had pain for the last several days. Patient was here as for 4 days ago for lower abdominal pain was diagnosed with a large right-sided ovarian cyst. Patient was not given any pain medicines. Patient states the pain intensified tonight she is having some vaginal bleeding at this time. Patient's been bleeding for the last several days. Patient also vomited 4 times before arrival. Patient states the pain is a 9 out of 10 in a generalized lower abdomen. Patient does have some urinary frequency as well. Severity scale (0 -10): 9 Quality: cramping Consistency: constant Worsens with: urination, menstrual period - Related Data Previous Rx's Medication Instructions Recorded Last Taken Type traMADol [Ultram 50 MG tab] 50 mg PO Q4HR PRN #14 tablet 08/20/17 Unknown Rx HYDROcodone/APAP 5-325 [[place] 1 each PO Q6HR PRN #14 tablet 08/22/17 Unknown Rx 5/325] Nitrofurantoin Monohyd/M-Cryst 100 mg PO BID #14 capsule 08/22/17 Unknown Rx [Macrobid 100 mg Capsule] Ondansetron [Zofran ODT TAB] 4 mg PO Q8HR PRN #14 tab.rapdis 08/22/17 Unknown Rx medroxyPROGESTERone ACETATE 5 mg PO QDAY #7 tablet 08/22/17 Unknown Rx [Provera] Allergies Allergy/AdvReac Type Severity Reaction Status Date / Time ketorolac [From Toradol] Allergy Itching Verified 04/02/17 02:15 ED Review of Systems ROS: Stated complaint: ABD PAIN VOMITING Other details as noted in HPI Comment: All other systems reviewed and negative ED Past Medical Hx - Past Medical History Previous Medical History?: Yes Hx Kidney Stones: Yes Hx HIV: No Additional medical history: renal stent placed 2017, RIGHT OVARIAN CYSTS - Surgical History Past Surgical History?: Yes Hx Appendectomy: Yes Additional Surgical History: "my bowel burst when I was 5 yrs old and required surgery" - Social History Smoking Status: Former Smoker Substance Use Type: Marijuana - Medications Home Medications: Home Medications Medication Instructions Recorded Confirmed Last Taken Type traMADol [Ultram 50 MG tab] 50 mg PO Q4HR PRN #14 tablet 08/20/17 Unknown Rx HYDROcodone/APAP 5-325 [[place] 1 each PO Q6HR PRN #14 tablet 08/22/17 Unknown Rx 5/325] Nitrofurantoin Monohyd/M-Cryst 100 mg PO BID #14 capsule 08/22/17 Unknown Rx [Macrobid 100 mg Capsule] Ondansetron [Zofran ODT TAB] 4 mg PO Q8HR PRN #14 tab.rapdis 08/22/17 Unknown Rx medroxyPROGESTERone ACETATE 5 mg PO QDAY #7 tablet 08/22/17 Unknown Rx [Provera] ED Physical Exam - General Limitations: No Limitations General appearance: alert, in no apparent distress - Head Head exam: Present: atraumatic, normocephalic - Eye Eye exam: Present: normal appearance - ENT ENT exam: Present: mucous membranes moist - Neck Neck exam: Present: normal inspection - Respiratory Respiratory exam: Present: normal lung sounds bilaterally. Absent: respiratory distress, wheezes, rales, rhonchi - Cardiovascular Cardiovascular Exam: Present: regular rate, normal rhythm. Absent: systolic murmur, diastolic murmur, rubs, gallop - GI/Abdominal GI/Abdominal exam: Present: soft, tenderness (some generalized lower abdominal tenderness), normal bowel sounds. Absent: distended, guarding, rebound - Extremities Exam Extremities exam: Present: normal inspection - Back Exam Back exam: Present: normal inspection - Neurological Exam Neurological exam: Present: alert, oriented X3 - Psychiatric Psychiatric exam: Present: normal affect, normal mood - Skin Skin exam: Present: warm, dry, intact, normal color. Absent: rash ED Course Vital Signs 08/22/17 01:34 Temperature 98.5 F Pulse Rate 72 Respiratory 16 Rate Blood Pressure 98/65 O2 Sat by Pulse 96 Oximetry ED Medical Decision Making - Lab Data Result diagrams: 08/22/17 01:53 08/22/17 01:53 Lab Results 08/22/17 08/22/17 08/22/17 Range/Units 01:53 01:53 Unknown WBC 5.6 (4.5-11.0) K/mm3 RBC 4.07 (3.65-5.03) M/mm3 Hgb 14.1 (10.1-14.3) gm/dl Hct 41.7 (30.3-42.9) % MCV 102 H (79-97) fl MCH 35 H (28-32) pg MCHC 34 (30-34) % RDW 12.8 L (13.2-15.2) % Plt Count 242 (140-440) K/mm3 Lymph % (Auto) 31.5 (13.4-35.0) % [place] % (Auto) 7.4 H (0.0-7.3) % Eos % (Auto) 1.3 (0.0-4.3) % Baso % (Auto) 0.2 (0.0-1.8) % Lymph # 1.8 (1.2-5.4) K/mm3 [place] # 0.4 (0.0-0.8) K/mm3 Eos # 0.1 (0.0-0.4) K/mm3 Baso # 0.0 (0.0-0.1) K/mm3 Seg Neutrophils % 59.6 (40.0-70.0) % Seg Neutrophils # 3.3 (1.8-7.7) K/mm3 Sodium 142 (137-145) mmol/L Potassium 4.2 (3.6-5.0) mmol/L Chloride 100.6 (98-107) mmol/L Carbon Dioxide 28 (22-30) mmol/L Anion Gap 18 mmol/L BUN 6 L (7-17) mg/dL Creatinine 0.6 L (0.7-1.2) mg/dL Estimated GFR > 60 ml/min BUN/Creatinine Ratio 10 % Glucose 123 H (65-100) mg/dL Calcium 9.3 (8.4-10.2) mg/dL Total Bilirubin 0.40 (0.1-1.2) mg/dL AST 19 (5-40) units/L ALT 10 (7-56) units/L Alkaline Phosphatase 71 (35-129) units/L Total Protein 7.1 (6.3-8.2) g/dL Albumin 4.6 (3.9-5) g/dL Albumin/Globulin Ratio 1.8 % Urine Color Red (Yellow) Urine Turbidity Clear (Clear) Urine pH 7.0 (5.0-7.0) Ur Specific [place] 1.018 (1.003-1.030) Urine Protein 100 mg/dl (Negative) mg/dL Urine Glucose (UA) Neg (Negative) mg/dL Urine Ketones Neg (Negative) mg/dL Urine Blood Lg (Negative) Urine Nitrite Neg (Negative) Urine Bilirubin Neg (Negative) Urine Urobilinogen 2.0 (<2.0) mg/dL Ur Leukocyte Esterase Mod (Negative) Urine WBC (Auto) 99.0 H (0.0-6.0) /HPF Urine RBC (Auto) > 135.0 (0.0-6.0) /HPF Urine Mucus Few /HPF - Medical Decision Making The patient's past visit was reviewed she does have a large right-sided ovarian cyst. Patient's having some abnormal bleeding. Patient states she bled 2 weeks ago now bleeding again. Patient is started on Provera for abnormal bleeding. Patient also be given Zofran for nausea as well as Vicodin for pain. Patient also is noted to have a UTI restarted on antibiotics as well. Critical care attestation.: If time is entered above; I have spent that time in minutes in the direct care of this critically ill patient, excluding procedure time. ED Disposition Clinical Impression: DUB (dysfunctional uterine bleeding) UTI (urinary tract infection) Qualifiers: Urinary tract infection type: acute cystitis Ovarian cyst Qualifiers: Laterality: right Qualified Code(s): N83.201 - Unspecified ovarian cyst, right side Disposition: TO HOME OR SELFCARE Is pt being admited?: No Does the pt Need Aspirin: No Condition: Stable Instructions: Abdominal Pain (ED), Urinary Tract Infection in Women (ED), Ovarian Cyst (ED) Additional Instructions: Please ensure that you follow with the [employer] that was referred to on the last visit Prescriptions: HYDROcodone/APAP 5-325 [[place] 5/325] 1 each PO Q6HR PRN #14 tablet PRN Reason: Pain medroxyPROGESTERone ACETATE [Provera] 5 mg PO QDAY #7 tablet Nitrofurantoin Monohyd/M-Cryst [Macrobid 100 mg Capsule] 100 mg PO BID #14 capsule Ondansetron [Zofran ODT TAB] 4 mg PO Q8HR PRN #14 tab.rapdis PRN Reason: Nausea And Vomiting Referrals: JERRICA CHANG MD [Primary Care Provider] - 3-5 Days
[2017-08-22 06:51] VITALS: BP 116/78
== END 2017-08-22 06:22 | disposition home or self-care (01) ==
LOC: ED 01:24
DX: N83.201 Unspecified ovarian cyst, right side (principal); N30.00 Acute cystitis without hematuria; N93.8 Other specified abnormal uterine and vaginal bleeding; F12.10 Cannabis abuse, uncomplicated; Z88.6 Allergy status to analgesic agent; Z87.891 Personal history of nicotine dependence; Z87.442 Personal history of urinary calculi; Z90.49 Acquired absence of other specified parts of digestive tract; Z97.8 Presence of other specified devices
CPT/HCPCS: 36415; 80053; 81001; 85025; 99284